=== PATIENT | female | born 1935 | race Caucasian/White ===

== ENCOUNTER → 2016-05-24 | Outpatient (CLI) | payer MEDICARE, BC | LOC: RAD 11:59 | DX: E11.9 Type 2 diabetes mellitus without complications (principal); I48.0 Paroxysmal atrial fibrillation; E03.4 Atrophy of thyroid (acquired); I50.9 Heart failure, unspecified; R51 Headache; R06.09 Other forms of dyspnea ==

== ENCOUNTER → 2016-06-08 | Outpatient (CLI) | payer MEDICARE, BC | LOC: LAB 15:11 | DX: I50.22 Chronic systolic (congestive) heart failure (principal) ==

== ENCOUNTER → 2016-06-15 | Outpatient (CLI) | payer MEDICARE, BC | LOC: VAS 17:10 | DX: I50.22 Chronic systolic (congestive) heart failure (principal); R01.1 Cardiac murmur, unspecified; I48.0 Paroxysmal atrial fibrillation ==

== ENCOUNTER → 2016-08-01 | Outpatient (CLI) | payer MEDICARE, BC | LOC: LAB 10:54 | DX: N30.01 Acute cystitis with hematuria (principal) ==

== ENCOUNTER → 2016-12-08 | Outpatient (CLI) | payer MEDICARE, BC | LOC: LAB 15:51 | DX: E11.9 Type 2 diabetes mellitus without complications (principal); R53.81 Other malaise; E55.9 Vitamin D deficiency, unspecified; I48.91 Unspecified atrial fibrillation; E78.5 Hyperlipidemia, unspecified ==

== ENCOUNTER → 2017-02-08 | Outpatient (CLI) | payer MEDICARE, BC | LOC: LAB 13:32 | PROVIDERS: Nurse Practitioner Family | DX: D53.9 Nutritional anemia, unspecified (principal) ==

== ENCOUNTER 2017-04-23 19:46 | Observation (INO) | payer MEDICARE, BC ==
[~2017-04-23] VITALS: Ht 157.5 cm; Wt 80.0 kg
[2017-04-23] MEDS ORDERED: PRADAXA 150MG150 MG PO (20:02)
[2017-04-23] MEDS ORDERED: LASIX40 M1 PO (20:02)
[2017-04-23] MEDS ORDERED: LEVEMIR100 U/M1 SQ (20:02)
[2017-04-23] MEDS ORDERED: NOVOLOG 100U100 U/ML SQ (20:02)
[2017-04-23] MEDS ORDERED: SYNTHROID0.05 MG PO (20:03)
[2017-04-23] MEDS ORDERED: AMIODARONE HCL100 MG PO (20:04)
[2017-04-23] MEDS ORDERED: LANOXIN125 MCG PO (20:04)
[2017-04-23] MEDS ORDERED: ATIVAN0.5 MG PO (20:07)
[2017-04-23] MEDS ORDERED: TOPROL XL 50MG50 MG PO (20:25)
[2017-04-23] MEDS ORDERED: LEVOTHYROXIN0.075 MG PO (20:25)
[2017-04-23] MEDS ORDERED: CORDARONE200 MG/TAB PO (20:27)
[2017-04-23] MEDS ORDERED: NOVOLOG MIX 70/33 ML SQ (20:30)
[2017-04-23 20:47] LABS: ALBUMIN 3.7 g/dL (3.5-5.0); BUN/CREATININE RATIO 13.7 (6.0-26.0); CALCIUM 8.5 mg/dL (8.4-10.2); TOTAL BILIRUBIN 0.8 mg/dL (0.2-1.3); TOTAL PROTEIN 8.1 g/dL (6.3-8.2)
[2017-04-23 20:50] LABS: HEMATOCRIT 36.6 % (37.0-47.0); HEMOGLOBIN 11.4 g/dL (12.5-16.0); MEAN CELL VOLUME 90 fl (78-100); MEAN CORPUSCULAR HEMOGLOBIN 28 pg (27-31); MEAN CORPUSCULAR HGB CONC 31 g/dL (33-37); MEAN PLATELET VOLUME 9.9 fl (7.4-10.4); PLATELET COUNT 228 K/mm3 (130-400); RED BLOOD COUNT 4.06 M/mm3 (4.10-5.30); RED CELL DISTRIBUTION WIDTH 14.9 % (11.5-14.5)
[2017-04-23 20:56] LABS: BAND 17 % (0-10); LYMPHOCYTE 4 % (20-51); MONOCYTE 6 % (3-10); NEUTROPHILS 70 % (42-75)
[2017-04-23 22:44] VITALS: BP 115/59
[2017-04-23 22:46] VITALS: BP 115/59
[2017-04-23 23:00] LABS: URINE APPEARANCE CLEAR; URINE BILIRUBIN NEGATIVE (NEGATIVE); URINE BLOOD NEGATIVE (NEGATIVE); URINE COLOR STRAW; URINE GLUCOSE NEGATIVE (NEGATIVE); URINE KETONE NEGATIVE (NEGATIVE); URINE LEUKOCYTE ESTERASE NEGATIVE (NEGATIVE); URINE NITRATE NEGATIVE (NEGATIVE); URINE PROTEIN(semi-quant) NEGATIVE (NEGATIVE); URINE UROBILINOGEN NORMAL (NORMAL); URINE WBC 0-1 /hpf (0-3)
[2017-04-23] MEDS ORDERED: XANAX0.25 M1 PO (23:16)
[2017-04-24] VITALS (15 sets, daily range): BP systolic 106–132; BP diastolic 39–67
[2017-04-24 07:45] LABS: HEMATOCRIT 30.6 % (37.0-47.0); HEMOGLOBIN 9.8 g/dL (12.5-16.0); MEAN CELL VOLUME 89 fl (78-100); MEAN CORPUSCULAR HEMOGLOBIN 28 pg (27-31); MEAN CORPUSCULAR HGB CONC 32 g/dL (33-37); MEAN PLATELET VOLUME 9.6 fl (7.4-10.4); PLATELET COUNT 183 K/mm3 (130-400); RED BLOOD COUNT 3.45 M/mm3 (4.10-5.30); RED CELL DISTRIBUTION WIDTH 14.9 % (11.5-14.5); WHITE BLOOD COUNT 8.8 K/mm3 (4.8-10.8)
[2017-04-24 08:05] LABS: TROPONIN-I 0.03 ng/mL (0.00-0.06)
[2017-04-24 08:16] LABS: BAND 29 % (0-10); NEUTROPHILS 52 % (42-75)
[2017-04-24 08:17] LABS: LYMPHOCYTE 9 % (20-51); MONOCYTE 10 % (3-10)
[2017-04-24 17:21] LABS: ALBUMIN 3.1 g/dL (3.5-5.0); CALCIUM 8.2 mg/dL (8.4-10.2); POTASSIUM 3.8 mmol/L (3.6-5.0); TOTAL BILIRUBIN 0.9 mg/dL (0.2-1.3); TOTAL PROTEIN 7.1 g/dL (6.3-8.2)
[2017-04-24 17:38] LABS: TROPONIN-I < 0.03 ng/mL (0.00-0.06)
[2017-04-25 02:55] VITALS: BP 127/78
[2017-04-25 06:21] VITALS: BP 121/57
[2017-04-25 11:05] VITALS: BP 116/46
[2017-04-25 15:00] VITALS: BP 121/56
[2017-04-27] MEDS ORDERED: AMIODARONE PO (07:38)
== END 2017-04-25 15:02 | disposition other institution (70) ==
LOC: ED 19:46 → MED/SURG 22:21
PROVIDERS: Nurse Practitioner Primary Care; ADMIT Family Medicine
DX: I50.1 Left ventricular failure, unspecified (principal); J18.9 Pneumonia, unspecified organism; E11.9 Type 2 diabetes mellitus without complications; Z95.0 Presence of cardiac pacemaker; I48.91 Unspecified atrial fibrillation; Z79.01 Long term (current) use of anticoagulants; Z79.4 Long term (current) use of insulin; T50.1X6A Underdosing of loop [high-ceiling] diuretics, initial encounter; Z91.138 Patient's unintentional underdosing of medication regimen for other reason; I49.3 Ventricular premature depolarization; R91.8 Other nonspecific abnormal finding of lung field; I47.2 Ventricular tachycardia; R09.02 Hypoxemia; Z99.81 Dependence on supplemental oxygen; E03.9 Hypothyroidism, unspecified; R01.1 Cardiac murmur, unspecified
CPT/HCPCS: G0378; J0456; J0696; J1940; J7050

== ENCOUNTER 2017-04-25 15:02 | Inpatient (IN) | payer MEDICARE, BC ==
[~2017-04-25] VITALS: Ht 157.5 cm; Wt 80.5 kg
[~2017-04-25 15:02] MED LIST: AMIODARONE HCL100 MG PO; ATIVAN0.5 MG PO; CORDARONE200 MG/TAB PO; LANOXIN125 MCG PO; LASIX40 M1 PO; LEVEMIR100 U/M1 SQ; LEVOTHYROXIN0.075 MG PO; NOVOLOG 100U100 U/ML SQ; NOVOLOG MIX 70/33 ML SQ; PRADAXA 150MG150 MG PO; SYNTHROID0.05 MG PO; TOPROL XL 50MG50 MG PO; XANAX0.25 M1 PO
[2017-04-25 16:16] VITALS: BP 121/56
[2017-04-25 16:19] VITALS: BP 121/56
[2017-04-25 19:20] VITALS: BP 144/68
[2017-04-25 23:44] VITALS: BP 132/54
[2017-04-26 03:19] VITALS: BP 126/59
[2017-04-26 06:07] LABS: EOS # 0.2 (0.04-0.40); EOS % 3.3 % (1.0-5.0); HEMATOCRIT 29.8 % (37.0-47.0); HEMOGLOBIN 9.5 g/dL (12.5-16.0); MEAN CELL VOLUME 90 fl (78-100); MEAN CORPUSCULAR HEMOGLOBIN 29 pg (27-31); MEAN CORPUSCULAR HGB CONC 32 g/dL (33-37); MEAN PLATELET VOLUME 9.5 fl (7.4-10.4); MONO # 0.6 (0.20-0.80); NEU # 3.2 (1.40-6.50); PLATELET COUNT 218 K/mm3 (130-400); RED BLOOD COUNT 3.33 M/mm3 (4.10-5.30); RED CELL DISTRIBUTION WIDTH 14.8 % (11.5-14.5); WHITE BLOOD COUNT 4.9 K/mm3 (4.8-10.8)
[2017-04-26 06:22] VITALS: BP 126/63
[2017-04-26 07:49] LABS: BUN/CREATININE RATIO 13.7 (6.0-26.0); CALCIUM 8.4 mg/dL (8.4-10.2); POTASSIUM 3.4 mmol/L (3.6-5.0)
[2017-04-26 11:02] VITALS: BP 130/53
[2017-04-26 15:19] VITALS: BP 135/59
[2017-04-26 18:38] VITALS: BP 152/69
[2017-04-26 23:51] VITALS: BP 117/52
[2017-04-27 00:01] LABS: FOLATE (FOLIC ACID) 14.9 ng/mL (7.0-31.4)
[2017-04-27 00:49] LABS: TRANSFERRIN 189 mg/dL (192-382)
[2017-04-27 04:24] VITALS: BP 132/52
[2017-04-27 06:23] VITALS: BP 117/56
[2017-04-27] MEDS ORDERED: LEVAQUIN 750MG750 M1 PO (07:36)
[2017-04-27] MEDS ORDERED: AMIODARONE PO ×2 (07:38)
[2017-04-27] MEDS ORDERED: DIGITEK125 MCG PO (07:39)
[2017-04-27] MEDS ORDERED: POTASSIUM CHLO10 ME5 PO (07:40)
[2017-04-27] MEDS ORDERED: FUROSEMIDE40 MG PO (07:42)
[2017-04-27] MEDS ORDERED: XOPENEX 0.0.625 MG/3 IH (07:43)
== END 2017-04-27 10:05 | disposition home or self-care (01) | DRG 194 ==
LOC: MED/SURG 15:02
PROVIDERS: ADMIT Nurse Practitioner Family
DX: J18.9 Pneumonia, unspecified organism (principal); I47.2 Ventricular tachycardia; I50.1 Left ventricular failure, unspecified; E87.6 Hypokalemia; E11.9 Type 2 diabetes mellitus without complications; I49.3 Ventricular premature depolarization; D64.9 Anemia, unspecified; Z79.4 Long term (current) use of insulin; Z79.01 Long term (current) use of anticoagulants
CPT/HCPCS: J1815

== ENCOUNTER → 2017-04-28 | Outpatient (CLI) | payer MEDICARE, BC ==
[2017-04-27 06:23] VITALS: BP 117/56
[~2017-04-28] MED LIST changes: +AMIODARONE PO; +DIGITEK125 MCG PO; +FUROSEMIDE40 MG PO; +LEVAQUIN 750MG750 M1 PO; +POTASSIUM CHLO10 ME5 PO; +XOPENEX 0.0.625 MG/3 IH
== END ==
LOC: LAB 16:18
DX: D64.9 Anemia, unspecified (principal)

== ENCOUNTER → 2017-05-09 | Outpatient (CLI) | payer MEDICARE, BC ==
[2017-04-27 06:23] VITALS: BP 117/56
[2017-05-09 14:20] LABS: HEMOGLOBIN 10.9 g/dL (12.5-16.0); MEAN CELL VOLUME 91 fl (78-100); MEAN CORPUSCULAR HEMOGLOBIN 28 pg (27-31); MEAN CORPUSCULAR HGB CONC 31 g/dL (33-37); MEAN PLATELET VOLUME 9.4 fl (7.4-10.4); PLATELET COUNT 246 K/mm3 (130-400); RED BLOOD COUNT 3.85 M/mm3 (4.10-5.30); WHITE BLOOD COUNT 4.3 K/mm3 (4.8-10.8)
[2017-05-09 15:01] LABS: BUN/CREATININE RATIO 14.3 (6.0-26.0); CALCIUM 8.6 mg/dL (8.4-10.2)
[2017-05-09 16:49] LABS: LYMPHOCYTE 18 % (20-51); MONOCYTE 10 % (3-10); NEUTROPHILS 68 % (42-75)
== END ==
LOC: LAB 13:10
PROVIDERS: Nurse Practitioner Family
DX: I50.22 Chronic systolic (congestive) heart failure (principal); D64.9 Anemia, unspecified; J18.9 Pneumonia, unspecified organism

== ENCOUNTER → 2017-05-11 | Outpatient (CLI) | payer MEDICARE, BC ==
[2017-04-27 06:23] VITALS: BP 117/56
== END ==
LOC: RAD 08:55
DX: I51.7 Cardiomegaly (principal); Z88.2 Allergy status to sulfonamides; Z88.8 Allergy status to other drugs, medicaments and biological substances
CPT/HCPCS: Q9967

== ENCOUNTER → 2017-09-27 | Outpatient (CLI) | payer MEDICARE, BC ==
[2017-09-27 08:13] LABS: EOS # 0.2 (0.04-0.40); EOS % 4.3 % (1.0-5.0); HEMATOCRIT 36.1 % (37.0-47.0); HEMOGLOBIN 11.1 g/dL (12.5-16.0); LYMPH# 1.1 (1.50-4.00); MEAN CELL VOLUME 93 fl (78-100); MEAN CORPUSCULAR HEMOGLOBIN 29 pg (27-31); MEAN CORPUSCULAR HGB CONC 31 g/dL (33-37); MEAN PLATELET VOLUME 9.9 fl (7.4-10.4); MONO # 0.4 (0.20-0.80); NEU # 2.6 (1.40-6.50); PLATELET COUNT 188 K/mm3 (130-400); RED BLOOD COUNT 3.88 M/mm3 (4.10-5.30); RED CELL DISTRIBUTION WIDTH 15.2 % (11.5-14.5); WHITE BLOOD COUNT 4.4 K/mm3 (4.8-10.8)
[2017-09-27 08:25] LABS: ALBUMIN 3.6 g/dL (3.5-5.0); BUN/CREATININE RATIO 18.3 (6.0-26.0); CALCIUM 8.6 mg/dL (8.4-10.2); POTASSIUM 4.5 mmol/L (3.6-5.0); TOTAL BILIRUBIN 0.4 mg/dL (0.2-1.3); TOTAL PROTEIN 8.3 g/dL (6.3-8.2)
[2017-09-27 09:28] LABS: PH-URINE 5.5 (5.0 - 8.0); URINE APPEARANCE HAZY; URINE BILIRUBIN NEGATIVE (NEGATIVE); URINE BLOOD TRACE (NEGATIVE); URINE COLOR YELLOW; URINE GLUCOSE NEGATIVE (NEGATIVE); URINE KETONE NEGATIVE (NEGATIVE); URINE LEUKOCYTE ESTERASE TRACE (NEGATIVE); URINE NITRATE NEGATIVE (NEGATIVE); URINE PROTEIN(semi-quant) TRACE mg/dL (NEGATIVE); URINE UROBILINOGEN NORMAL (NORMAL)
== END ==
LOC: LAB 07:57
PROVIDERS: Family Medicine
DX: E11.9 Type 2 diabetes mellitus without complications (principal); D64.9 Anemia, unspecified; E78.2 Mixed hyperlipidemia; I48.0 Paroxysmal atrial fibrillation; I50.22 Chronic systolic (congestive) heart failure; Z79.4 Long term (current) use of insulin; N39.0 Urinary tract infection, site not specified

== ENCOUNTER → 2017-10-13 | Outpatient (CLI) | payer MEDICARE, BC ==
[2017-10-13 16:13] LABS: URINE APPEARANCE HAZY; URINE BILIRUBIN NEGATIVE (NEGATIVE); URINE BLOOD NEGATIVE (NEGATIVE); URINE COLOR YELLOW; URINE GLUCOSE NEGATIVE (NEGATIVE); URINE KETONE NEGATIVE (NEGATIVE); URINE LEUKOCYTE ESTERASE TRACE (NEGATIVE); URINE NITRATE NEGATIVE (NEGATIVE); URINE PROTEIN(semi-quant) NEGATIVE (NEGATIVE); URINE UROBILINOGEN NORMAL (NORMAL)
== END ==
LOC: LAB 15:19
PROVIDERS: Internal Medicine
DX: N39.0 Urinary tract infection, site not specified (principal)

== ENCOUNTER → 2017-10-17 | Outpatient (CLI) | payer MEDICARE, BC ==
[2017-10-17 10:33] LABS: URINE APPEARANCE HAZY; URINE BILIRUBIN NEGATIVE (NEGATIVE); URINE BLOOD NEGATIVE (NEGATIVE); URINE COLOR YELLOW; URINE GLUCOSE NEGATIVE (NEGATIVE); URINE KETONE NEGATIVE (NEGATIVE); URINE LEUKOCYTE ESTERASE NEGATIVE (NEGATIVE); URINE NITRATE NEGATIVE (NEGATIVE); URINE PROTEIN(semi-quant) TRACE mg/dL (NEGATIVE); URINE UROBILINOGEN NORMAL (NORMAL)
== END ==
LOC: LAB 08:48
PROVIDERS: Nurse Practitioner Family
DX: N39.0 Urinary tract infection, site not specified (principal)

== ENCOUNTER → 2017-11-03 | Outpatient (CLI) | payer MEDICARE, BC | LOC: LAB 10:26 | DX: I48.0 Paroxysmal atrial fibrillation (principal) ==

== ENCOUNTER → 2018-02-19 | Outpatient (CLI) | payer MEDICARE, BC ==
[2018-02-19 11:50] LABS: EOS # 0.2 (0.04-0.40); HEMATOCRIT 35.7 % (37.0-47.0); HEMOGLOBIN 11.6 g/dL (12.5-16.0); MEAN CELL VOLUME 93 fl (78-100); MEAN CORPUSCULAR HEMOGLOBIN 30 pg (27-31); MEAN CORPUSCULAR HGB CONC 33 g/dL (33-37); MEAN PLATELET VOLUME 10.3 fl (7.4-10.4); MONO # 0.4 (0.20-0.80); NEU # 2.2 (1.40-6.50); PLATELET COUNT 162 K/mm3 (130-400); RED BLOOD COUNT 3.84 M/mm3 (4.10-5.30); WHITE BLOOD COUNT 3.8 K/mm3 (4.8-10.8)
[2018-02-19 12:12] LABS: ALBUMIN 3.7 g/dL (3.5-5.0); CALCIUM 8.6 mg/dL (8.4-10.2); DIGOXIN 0.7 ng/mL (0.8-2.0); POTASSIUM 4.3 mmol/L (3.6-5.0); TOTAL BILIRUBIN 0.5 mg/dL (0.2-1.3); TOTAL PROTEIN 7.8 g/dL (6.3-8.2)
== END ==
LOC: LAB 11:27
PROVIDERS: Family Medicine
DX: I50.9 Heart failure, unspecified (principal); I48.0 Paroxysmal atrial fibrillation; D64.9 Anemia, unspecified; E78.2 Mixed hyperlipidemia; E11.9 Type 2 diabetes mellitus without complications; Z79.4 Long term (current) use of insulin

== ENCOUNTER → 2018-06-15 | Outpatient (CLI) | payer MEDICARE, BC ==
[2018-06-15 17:04] LABS: PH-URINE 5.5 (5.0 - 8.0); URINE APPEARANCE CLEAR; URINE COLOR YELLOW; URINE PROTEIN(semi-quant) TRACE mg/dL (NEGATIVE)
[2018-06-15 17:05] LABS: URINE BILIRUBIN NEGATIVE (NEGATIVE); URINE BLOOD TRACE (NEGATIVE); URINE GLUCOSE NEGATIVE (NEGATIVE); URINE KETONE NEGATIVE (NEGATIVE); URINE LEUKOCYTE ESTERASE NEGATIVE (NEGATIVE); URINE NITRATE NEGATIVE (NEGATIVE); URINE UROBILINOGEN NORMAL (NORMAL)
== END ==
LOC: LAB 15:48
PROVIDERS: Family Medicine
DX: R30.0 Dysuria (principal); R53.83 Other fatigue

== ENCOUNTER → 2018-10-23 | Outpatient (CLI) | payer MEDICARE, BC ==
[2018-10-23 14:16] LABS: EOS # 0.1 (0.04-0.40); EOS % 3.5 % (1.0-5.0); HEMATOCRIT 36.7 % (37.0-47.0); HEMOGLOBIN 11.6 g/dL (12.5-16.0); LYMPH# 1.1 (1.50-4.00); MEAN CELL VOLUME 91 fl (78-100); MEAN CORPUSCULAR HEMOGLOBIN 29 pg (27-31); MEAN CORPUSCULAR HGB CONC 32 g/dL (33-37); MEAN PLATELET VOLUME 9.7 fl (7.4-10.4); MONO # 0.5 (0.20-0.80); NEU # 2.2 (1.40-6.50); PLATELET COUNT 182 K/mm3 (130-400); RED BLOOD COUNT 4.02 M/mm3 (4.10-5.30); RED CELL DISTRIBUTION WIDTH 13.7 % (11.5-14.5)
[2018-10-23 14:24] LABS: ALBUMIN 3.6 g/dL (3.4-4.8)
[2018-10-23 14:25] LABS: CALCIUM 9.1 mg/dL (8.3-10.5)
[2018-10-23 14:26] LABS: TOTAL PROTEIN 8.2 g/dL (6.2-8.1)
[2018-10-23 14:28] LABS: TOTAL BILIRUBIN 0.6 mg/dL (0.2-1.2)
== END ==
LOC: LAB 14:03
PROVIDERS: Family Medicine
DX: Z01.419 Encounter for gynecological examination (general) (routine) without abnormal findings (principal); E11.9 Type 2 diabetes mellitus without complications; E55.9 Vitamin D deficiency, unspecified; E78.5 Hyperlipidemia, unspecified; N76.0 Acute vaginitis; R53.83 Other fatigue

== ENCOUNTER → 2019-10-07 | Outpatient (CLI) | payer MEDICARE, BC ==
[2019-10-07 12:38] LABS: HEMATOCRIT 34.5 % (37.0-47.0); HEMOGLOBIN 10.7 g/dL (12.5-16.0); MEAN CELL VOLUME 92 fl (78-100); MEAN CORPUSCULAR HEMOGLOBIN 29 pg (27-31); MEAN CORPUSCULAR HGB CONC 31 g/dL (33-37); MEAN PLATELET VOLUME 10.3 fl (7.4-10.4); PLATELET COUNT 164 K/mm3 (130-400); RED BLOOD COUNT 3.75 M/mm3 (4.10-5.30); RED CELL DISTRIBUTION WIDTH 14.6 % (11.5-14.5); WHITE BLOOD COUNT 3.8 K/mm3 (4.8-10.8)
[2019-10-07 12:43] LABS: ALBUMIN 3.5 g/dL (3.4-4.8)
[2019-10-07 12:44] LABS: CALCIUM 8.8 mg/dL (8.3-10.5)
[2019-10-07 12:45] LABS: TOTAL PROTEIN 7.8 g/dL (6.2-8.1)
[2019-10-07 13:38] LABS: TOTAL BILIRUBIN 0.6 mg/dL (0.2-1.2)
[2019-10-07 14:48] LABS: HYPOCHROMIA 1+; LYMPHOCYTE 21 % (20-51); MONOCYTE 11 % (3-10); NEUTROPHILS 64 % (42-75)
== END ==
LOC: LAB 11:54
PROVIDERS: Family Medicine
DX: Z01.419 Encounter for gynecological examination (general) (routine) without abnormal findings (principal); E11.9 Type 2 diabetes mellitus without complications; E78.5 Hyperlipidemia, unspecified; E55.9 Vitamin D deficiency, unspecified

== ENCOUNTER → 2020-05-05 | Outpatient (CLI) | payer MEDICARE, BC ==
[2020-05-05 14:47] LABS: HEMOGLOBIN 11.5 g/dL (12.5-16.0)
[2020-05-05 14:58] LABS: POTASSIUM 4.3 mmol/L (3.5-5.1)
[2020-05-05 14:59] LABS: CALCIUM 9.1 mg/dL (8.3-10.5)
== END ==
LOC: LAB 14:36
PROVIDERS: Internal Medicine Cardiovascular Disease
DX: E87.6 Hypokalemia (principal); D64.9 Anemia, unspecified

== ENCOUNTER → 2020-12-30 | Outpatient (CLI) | payer MEDICARE, BC ==
[~2020-12-30] MED LIST changes: +DIGOX0.125 MG PO; +ZESTRIL5 M1 PO
[2020-12-30 11:59] LABS: BASO # 0.03 (0.02-0.10); EOS # 0.13 (0.04-0.40); EOS % 3.1 % (1.0-5.0); HEMATOCRIT 36.6 % (37.0-47.0); HEMOGLOBIN 11.5 g/dL (12.5-16.0); LYMPH# 1.07 (1.50-4.00); MEAN CELL VOLUME 95 fl (78-100); MEAN CORPUSCULAR HEMOGLOBIN 30 pg (27-31); MEAN CORPUSCULAR HGB CONC 31 g/dL (33-37); MONO # 0.48 (0.20-0.80); NEU # 2.54 (1.40-6.50); PLATELET COUNT 184 K/mm3 (130-400); RED BLOOD COUNT 3.84 M/mm3 (4.10-5.30); RED CELL DISTRIBUTION WIDTH 13.4 % (11.5-14.5); WHITE BLOOD COUNT 4.3 K/mm3 (4.8-10.8)
[2020-12-30 12:02] LABS: POTASSIUM 4.7 mmol/L (3.5-5.1)
[2020-12-30 12:03] LABS: ALBUMIN 3.4 g/dL (3.4-4.8)
[2020-12-30 12:04] LABS: CALCIUM 9.6 mg/dL (8.3-10.5)
[2020-12-30 12:05] LABS: TOTAL PROTEIN 8.2 g/dL (6.2-8.1)
[2020-12-30 12:07] LABS: TOTAL BILIRUBIN 0.8 mg/dL (0.2-1.2)
== END ==
LOC: LAB 11:30
PROVIDERS: Family Medicine
DX: Z00.00 Encounter for general adult medical examination without abnormal findings (principal); E03.9 Hypothyroidism, unspecified; E55.9 Vitamin D deficiency, unspecified; E11.9 Type 2 diabetes mellitus without complications; E78.5 Hyperlipidemia, unspecified

== ENCOUNTER → 2021-01-04 | Outpatient (CLI) | payer MEDICARE, BC ==
[~2021-01-04] VITALS: Ht 157.5 cm; Wt 80.5 kg
[2021-01-04 10:35] VITALS: BP 121/52
== END ==
LOC: AMSURD 08:38
DX: Z79.899 Other long term (current) drug therapy (principal)
CPT/HCPCS: J1756

== ENCOUNTER → 2021-03-16 | Outpatient (CLI) | payer MEDICARE, BC ==
[2021-03-20 23:22] LABS: VITAMIN B1 99 nmol/L (70-180)
== END ==
LOC: LAB 16:21
PROVIDERS: Family Medicine
DX: E53.9 Vitamin B deficiency, unspecified (principal)

== ENCOUNTER → 2021-08-20 | Outpatient (CLI) | payer MEDICARE, BC ==
[2021-08-20 12:19] LABS: BASO # 0.02 K/mm3 (0.02-0.10); EOS # 0.18 K/mm3 (0.04-0.40); EOS % 3.8 % (1.0-5.0); HEMATOCRIT 34.3 % (37.0-47.0); HEMOGLOBIN 10.9 g/dL (12.5-16.0); LYMPH# 1.14 K/mm3 (1.50-4.00); MEAN CELL VOLUME 93 fl (78-100); MEAN CORPUSCULAR HEMOGLOBIN 29 pg (27-31); MEAN CORPUSCULAR HGB CONC 32 g/dL (33-37); MEAN PLATELET VOLUME 9.5 fl (7.4-10.4); MONO # 0.53 K/mm3 (0.20-0.80); NEU # 2.88 K/mm3 (1.40-6.50); PLATELET COUNT 186 K/mm3 (130-400); RED BLOOD COUNT 3.71 M/mm3 (4.10-5.30); RED CELL DISTRIBUTION WIDTH 14.6 % (11.5-14.5); WHITE BLOOD COUNT 4.8 K/mm3 (4.8-10.8)
[2021-08-20 12:23] LABS: ALBUMIN 3.6 g/dL (3.4-4.8)
[2021-08-20 12:24] LABS: POTASSIUM 4.7 mmol/L (3.5-5.1)
[2021-08-20 12:25] LABS: CALCIUM 9.5 mg/dL (8.3-10.5)
[2021-08-20 12:26] LABS: TOTAL PROTEIN 8.4 g/dL (6.2-8.1)
[2021-08-20 12:28] LABS: TOTAL BILIRUBIN 0.6 mg/dL (0.2-1.2)
== END ==
LOC: LAB 11:58
PROVIDERS: Family Medicine
DX: J45.909 Unspecified asthma, uncomplicated (principal); I50.22 Chronic systolic (congestive) heart failure; F32.9 Major depressive disorder, single episode, unspecified; E78.5 Hyperlipidemia, unspecified; E66.9 Obesity, unspecified; I48.0 Paroxysmal atrial fibrillation; G45.9 Transient cerebral ischemic attack, unspecified; E11.9 Type 2 diabetes mellitus without complications; I99.8 Other disorder of circulatory system; E55.9 Vitamin D deficiency, unspecified

== ENCOUNTER → 2022-03-15 | Outpatient (CLI) | payer MEDICARE, BC | LOC: LAB 11:12 | DX: L03.115 Cellulitis of right lower limb (principal); L08.9 Local infection of the skin and subcutaneous tissue, unspecified ==

== ENCOUNTER → 2023-04-20 | Outpatient (CLI) | payer MEDICARE, BC ==
[2023-04-21 18:51] LABS: FOLATE (FOLIC ACID) 15.6 ng/mL (2.0-20.0)
== END ==
LOC: LAB 15:08
PROVIDERS: Nurse Practitioner
DX: E11.9 Type 2 diabetes mellitus without complications (principal); D64.9 Anemia, unspecified